=== PATIENT | male | born 1985 | race Caucasian/White ===

== ENCOUNTER 2024-06-27 13:22 | Emergency (ER) | payer OTHER, SELFPAY ==
[2024-06-27 13:25] VITALS: BP 132/77; PULSE 82; RESP 18; TEMP 36.2; O2SAT 100; BMI 29.2
--- NOTE | 2024-06-27 13:59 | RAD_ITS ---
EXAM: XR Left Hand Complete, 3 or More Views CLINICAL INDICATION: PAIN, CRUSH INJURY TECHNIQUE: Frontal, lateral and oblique views of the left hand. COMPARISON: No relevant prior studies available. FINDINGS: BONES/JOINTS: Comminuted mildly displaced fracture of the 3rd middle phalanx. Soft tissue swelling. No dislocation. SOFT TISSUES: See above. RAD/Hand Min 3 Views IMPRESSION: Comminuted mildly displaced fracture of the 3rd middle phalanx. Soft tissue sw elling. Reading Location: [facility]
--- NOTE | 2024-06-27 14:40 | ED.RN ---
PT NOTS SENSATION INTACT IN THE LEFT HAND
[2024-06-27 14:41] VITALS: O2SAT 98
--- NOTE | 2024-06-27 14:52 | EX.ED.GENINJ ---
HPI History of Present Illness Chief Complaint: Trauma Detail of Chief Complaint: Injury to left long and Informant: patient Onset/Context/Timing Onset: Today and Hours (At approximately 12 noon) Location of pain/injuries: Left hand (Index and long finger) Quality of Pain: Dull and Aching Location: Left index and long finger Current Severity: Mild Maximum Severity: Moderate Worsened by: Attempt to use his hand Relieved by: Nothing Associated Symptoms Associated Symptoms: Positive for Loss of function; Negative for Parasthesias or Weakness Narrative Narrative: Patient is a 38-year-old orutp-vqju-ppbijynk male. He presents with injury to his left index and long finger. This occurred at approximately 12 noon. Tetanus is uncertain. He has no antibiotic allergies. He denies paresthesia, anesthesia medics. He states he is unable to bend his left long finger. He denies prior injury. Tetanus Immunization: Unknown Prior similar symptoms: No Recent Illness/Hospitalization: No PFSH PFSH Home Medications ?Medication ?Instructions ?Recorded ?Last Taken ?Type cephalexin 500 mg capsule 500 mg PO 3XD #21 CAPSULES 06/27/24 Unknown Rx Allergy/AdvReac Type Severity Reaction Status Date / Time No Known Allergies Allergy Verified 06/27/24 14:33 Social History (Updated 06/27/24 @ 15:[address] Figueroa Stiles MD) household members: spouse Smoking Status: Never smoker ROS ROS ED Constitutional Constitutional ED: Denies chills or fever(s) Gastrointestinal Gastrointestinal: Denies nausea or vomiting Integumentary Reports other Details: Laceration and abrasions left index and long finger Neurologic Neurologic: Denies paresthesias or weakness Hematologic/Lymphatic Hematologic/Lymphatic: Denies easy bleeding or easy bruising EXAM Physical Exam Const Vital Signs: 06/27/24 13:25 06/27/24 14:41 06/27/24 15:24 Temperature 97.2 F L Temperature Source Temporal Pulse Rate 82 63 Respiratory Rate 18 18 Respiratory Effort Normal Respiratory Depth Normal Respiratory Pattern Normal Blood Pressure 132/77 H 120/78 Blood Pressure Mean 95 92 Pulse Ox 100 98 98 Oxygen Delivery Method Room Air Room Air Initial vital signs reveal elevated blood pressure. Suspect this is due to pain. Positive well nourished and well developed General Appearance ED: well developed; Negative for NAD HEENT atraumatic; Negative for tenderness Nose: Negative for septum abnormal Eyes PERRL and EOMs intact bilaterally Resp normal respiratory effort and clear to auscultation bilaterally Cardio regular rhythm, S1 normal heart sound, S2 normal heart sound and no murmurs Rate: regular rate Extremity Extremity Narrative: Patient has deformity to his left long finger. He has limited flexion extension. There is slight flexion at the PIP and not much at the DIP. His fingers in extension. He has an abrasion noted on the dorsal side of the left index finger over the middle and distal phalanx. He has a laceration lateral side of the index finger that will require repair. He also has a laceration on the ulnar side of his long finger. General Extremety ED: Yes deformity General Extremity: deformity Neuro oriented x3, CN's II-XII intact bilaterally, no focal motor deficits and No no sensory deficits noted Neuro Narrative: Absent two point discrimination radial side of the left long finger Psych mental status grossly normal and thought process normal Skin Skin Narrative: Wounds as previously mentioned under the extremity portion of the EMR MDM MDM Radiography Chest X-Ray - ED: Read by ED Physician (Three-view x-ray of the hand was obtained patient has a comminuted angulated displaced fracture of the middle phalanx shaft long finger. This would explain his limited range of motion.) Diagnostic Testing: Clinical Impression(s) from Imaging Studies Hand X-Ray 06/27/24 13:59 IMPRESSION: Comminuted mildly displaced fracture of the 3rd middle phalanx. Soft tissue swelling. Reading Location: [facility] Management Discussion w/another healthcare provider: Peripheral Edp Equipment Operator (Spoke to Dr. Theodore Garcia. He requested 2 g of Ancef not the 1 that was ordered. He called back and stated he would see patient in the ER. He will make arrangements for outpatient surgical repair.) Discharge Plan Triage Chief Complaint: Trauma ED Provider: Figueroa Stiles Dx/Rx/DC Orders Clinical Impression: Open fracture of middle phalanx of left middle finger, Laceration of left index finger, Crushing injury of finger of left hand Instructions: ED Open Hand Fracture (Adult), ED Laceration, Hand: All Closures Prescriptions: New cephalexin 500 mg capsule 500 mg PO 3XD Qty: 21 0RF Primary Care Provider: Lamar Jo NP Referrals: Theodore Garcia MD [Med Staff - Active Staff] - As soon as possible Sandro,Lamar TUG MASTER, TUG MASTER-C [Primary Care Provider] - Print Language: Upper Sorbian Disposition Disposition: Home, Self Care
[2024-06-27] MEDS: Cefazolin 2 GM in Syringe IV (15:16)
[2024-06-27] MEDS: Lidocaine 1% (20 ml mdv) 20 ML Vial INFILT ×2 (15:16→16:06)
[2024-06-27 15:24] VITALS: BP 120/78; PULSE 63; RESP 18; O2SAT 98
[2024-06-27] MEDS: Diphth,Pertuss(Acell),Tet Vac 0.5 ML Vial IM (16:36)
--- NOTE | 2024-06-27 16:44 | ED.RN ---
DR JOSHI AND HIS NURSE WORKED ON CLEANING THE WOUND ON THE LEFT HAND. DR. PALENCIA NURSE WILL BE CALLING PT TO SCHEDULE FOLLOW UP APPT FOR SURGERY. WOUND WAS BANDAGED WHEN THIS NURSE CAME IN FOR DISPO HOME.
--- NOTE | 2024-06-27 16:50 | CON.PCM.SX_ITS ---
Assessment & Plan Assessment/Plan (1) Crushing injury of finger of left hand: (2) Open fracture of middle phalanx of left middle finger: (3) Laceration of left index finger: PLAN: Plan I talked the patient extensively about management options including close reduction with splinting/casting, close reduction percutaneous pinning with subsequent splinting/casting, and open reduction internal fixation with screw placement through the DIP joint. 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 Given his circumstances, he would like if possible rigid internal fixation with intramedullary screw. He understands that this may not be possible we may have to place K wires. I talked to the patient extensively about the risks of surgery, including bleeding, infection, damage to surrounding structures, poor scaring, hardware failure, non-union or malunion, surgical site dehiscence and wound formation, need for wound care, need for repeat operations (especially if infection of hardware, or infection around the hardware), failure to obtain the desired result, DVT/PE, and the risks of anesthesia including , including stroke (from low blood pressure/ischemia or clot). The benefits and alternatives of this surgery were also discussed. All of their questions were answered, and they agreed to proceed with surgery. The alteration in sensation distal to the zone of injury in the long finger is likely due to the crush injury and neuropraxia. We will reassess his sensation in preoperative holding at the time of the surgery. Plan for open reduction internal fixation versus closed reduction percutaneous pinning of left long finger middle phalanx fracture (likely sedation and local). Patient is open fracture was washed out and closed and his laceration was repaired. Please see separate operative note. 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 Patient reports sharp severe pain in the left upper extremity worsened by movements and improved with rest and elevation. He was noted to have a transverse diaphyseal fracture on x-ray of the left long finger, but no fractures in the index finger. He has a laceration on the long finger and the index finger. Patient is left-handed. No personal or family history of bleeding or clotting problems. He is not a smoker. No history of problems with anesthesia. He was given 2 g of Ancef in the emergency department and his tetanus was updated. [facility] Home Medications ?Medication ?Instructions ?Recorded ?Last Taken ?Type cephalexin 500 mg capsule 500 mg PO 3XD #21 CAPSULES 0 06/27/24 Unknown Rx Allergy/AdvReac Type Severity Reaction Status Date / Time No Known Allergies Allergy Verified 06/27/24 14:33 Social History (Updated 06/27/24 @ 15:[address] Figueroa Stiles MD) household members: spouse Smoking Status: Never smoker Physical Exam Narrative LEFT UPPER EXTREMITY Inspection: 2 cm laceration on the ulnar/dorsal side of the long finger over P2. Index finger with 2 cm laceration on volar/radial surface. Avulsion injury (partial thickness) to the dorsum of the index on the radial side. Palpation: TTP over the long finger P2. Motor: Once blocked with lidocaine and fracture reduced, he was able to bend and extend all MP, PIP, and DIP joints. No flexor or extensor tendon injuries on the index or long fingers. Sensory: Intact to light touch on the radial and ulnar borders except he has no pin prick sensation on the radial side of the long finger distal to the zone of injury (despite no laceration). Vascular: Finger tips are warm and well perfused with <2 second capillary refill. Doppler demonstrated triphasic signal distal to the zone of injury on the index and long fingers. Imaging Radiology Impression Hand X-Ray 06/27/24 13:59 IMPRESSION: Comminuted mildly displaced fracture of the 3rd middle phalanx. Soft tissue swelling. Reading Location: [facility] I reviewed the fracture. Diaphyseal fracture on the long finger middle phalanx. Charges/Coding Visit Charges Office Visits / Consults: 38021 OV L4 New 45min
--- NOTE | 2024-06-27 17:04 | OP.PCM_ITS ---
Operative Report (Standard) Operative Information Date of Procedure: 06/27/24 Pre-Operative Diagnosis: 1) Left long finger open fracture, middle phalanx 2) Laceration left index finger Post-Operative Diagnosis: Same Surgery/Procedure Performed: 1) Left long finger open fracture wash out and closure, CPT: 89061 2) Left index finger laceration repair, 2 cm (simple), CPT: 31830 registered physical therapist: No Type of Anesthesia: Local (10 cc of 1% lidocaine ) Procedure Start Time: 04:25 Procedure Stop Time: 04:50 Select all DRAINS/GRAFTS/IMPLANTS that apply: None Estimated Blood Loss: minimal Specimen collected: No Description of surgery: Indications: 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 He has an open fracture of the left long finger middle phalanx. Presents today for washout. I talked him about the risks, benefits, and alternatives to washout and closure of these wounds. Procedure details: Patient was correctly identified and prepped and draped in sterile fashion with chlorhexidine scrub. Timeout was performed. The above-noted local mixture was administered for digital block as noted above (10 cc of 1% lidocaine). He was given time to take effect. Both of the wounds (index finger volar laceration and long finger dorsal ulnar laceration) were both washed out with copious amounts normal saline. The long f tree fracture was reduced and his tendons were examined (he was able to hyperextend from neutral and flex the DIP joint and the PIP joint independently). 1 L normal saline was used to washout the long finger open fracture, and necrotic skin debris was washed out of the wound and dirt was washed out the subcutaneous tissue overlying the wound. The wounds were then closed with simple interrupted 3-0 nylon sutures, 4 simple closure 2 cm in the index finger and a simple closure 2 cm in the long finger. The patient tolerated the procedure well. Xeroform Karen and Coban were applied loosely and a protective AlumaFoam splint was applied to the long finger. Postoperative plan: Patient will go home on Keflex 500 mg 3 times daily for 1 week. He will follow-up with me for surgery. Surgical Findings: Reducible and unstable P2 fracture of the left long finger Complications Complications: No
== END 2024-06-27 16:47 | disposition home or self-care (01) ==
PROVIDERS: Emergency Provider Emergency Medicine; PCP Internal Medicine; Referring Provider Emergency Medicine; Visit Provider Emergency Medicine
DX: S62.623B Displaced fracture of middle phalanx of left middle finger, initial encounter for open fracture (principal); S67.193A Crushing injury of left middle finger, initial encounter; S61.211A Laceration without foreign body of left index finger without damage to nail, initial encounter; W22.8XXA Striking against or struck by other objects, initial encounter; Z23 Encounter for immunization
CPT/HCPCS: 26725; 12002; 73130; 90715; 96365; 99283; A4216

== ENCOUNTER 2024-06-29 10:13 | Day surgery (SDC) | payer OTHER, SELFPAY ==
[2024-06-29] VITALS (7 sets, daily range): BP systolic 117–136; BP diastolic 73–94; PULSE 68–80; RESP 16–20; TEMP 35.8–36.2; O2SAT 97–100; BMI 28.5
--- NOTE | 2024-06-29 10:32 | PRE.ANES_ITS ---
ASA Classification* ASA Classification ASA Classification: 2 Assessment & Plan Anesthesia* Anesthesia Assessment Anesthesia Assessment: Discussed sedation and/or anesthesia options, risks, benefits, and alternatives with patient/parents/legal guardian/POA. Questions invited. The patient/parents/legal guardian/POA seems to understand and agrees to proceed with anesthesia plan. Reviewed the physical assessment, medical history, allergy history and patient home medications list prior to surgery/procedure/anesthetic and documented any changes. Performed airway and anesthesia risk assessments. Anesthesia Type Anesthesia Type: MAC Anesthesia Focused Assessment* Airway Assessment Mouth opens: >3 cm Mallampati Score: II Focused Labs Anesthesia Preop lab: CBC CHEMISTRY COAG Pre-Assessment Diagnosis/Proposed Procedure Planned Operative Procedure(s): ORIF LEFT LONG FINGER VS CLOSED REDUCTION PINNING Anesthesia History Anesthesia History - [facility]: Anesthesia History - [facility] Hx Hospitalization No 06/28/24 12:24 Any Problems With Anesthesia No 06/28/24 12:24 Cholinesterase deficiency No 06/28/24 12:24 You/Your Family Experience No 06/28/24 12:24 fever (hyperthermia) with Relationship Recent Exposure to Contagious Disease Does patient have nerve No 06/28/24 12:24 stimulator Patient instructed to have device shut off --Does patient have Pacemaker or ICD? When Was Last Pacemaker Check QUESTION #4 FULL TEXT: You/Your Family Experience fever (hyperthermia) with Anesthesia Last Oral Intake Last Oral intake: Last Oral Intake NPO since Meds taken in AM with sips of water? Meds patient instructed to take am of surgery PONV PONV - [facility] service [facility]: PONV - [facility] Female No 06/28/24 12:24 HX of Motion Sickness No 06/28/24 12:24 HX of N/V After Surgery No 06/28/24 12:24 Non-Smoker Yes 06/28/24 12:24 Duration of Surgery greater Yes 06/28/24 12:24 than 60 minutes Number of Risk Factors 2 06/28/24 12:24 PONV Score Moderate Risk 06/28/24 12:24 Height & Weight Height & Weight: Anesthesia: Height & Weight Height 6 ft 2 in 06/27/24 13:25 Respiratory Assessment Respiratory Assessment - [facility]: Respiratory Tract Infection Hx - [facility] Hx Respiratory Tract Infection No 06/28/24 12:24 STOP Sleep Apnea STOP Sleep Apnea - [facility]: STOP Sleep Apnea - [facility] Hx Hypertension No 06/28/24 12:24 Hx Sleep Apnea No 06/28/24 12:24 CPAP BIPAP Do you snore loudly (louder No 06/28/24 12:24 than talking or can be heard Do you often feel tired/ Yes 06/28/24 12:24 fatigued/ sleepy during daytime? Has anyone observed you stop No 06/28/24 12:24 breathing during sleep? STOP Results Negative 06/28/24 12:24 QUESTION #5 FULL TEXT : Do you snore loudly (louder than talking or can be h eard through closed doors)? Tobacco Use History Tobacco Use History - [facility]: Tobacco Use History - [facility] Tobacco Use Smoking Status Never smoker 06/28/24 12:24 Hx Tobacco Use No 06/28/24 12:24 Years Smoking Packs Smoked per Day Smoking Cessation Date was within the last 15 years Hx Smoking Cessation Date Hx Smoking Cessation Counseling Hematologic Medial History Hematologic Hx - [facility] service [facility]: Hematologic Medical Hx - [facility] Hx of Blood Transfusion No 06/28/24 12:24 Hx of Transfusion in last 3 No 06/28/24 12:24 Months Date of Last Transfusion (if within last 3 months) Ever experience any problems No 06/28/24 12:24 with transfusion(s)? Specify any problems Hx of Preganancy in last 3 N/A 06/28/24 12:24 Months Nurse Filling Out Transfusion DSCHRIBER 06/28/24 12:24 & Questions: Date: 06/28/24 06/28/24 12:24 Time: 12:06/28/24 12:24 Patient unable to answer at this time (ie. confused, unrespo /Reproduction History /Reproductive History - [facility]: /Reproductive Hx- [facility] Hx Now No 06/28/24 12:24 Gestational Age (in weeks): EDC: Hx Hx Para Hx Section SAB No 06/28/24 12:24 Active Medications Active Medications: Current Medications Generic Name Dose Route Start Last Admin Trade Name Freq PRN Reason Stop Dose Admin Cefazolin Sodium 2 gm/ N/A 20 mls @ 400 mls/hr 06/29/24 15:00 IV 06/29/24 15:02 PREOP ONE PFSH Medical History Leg cramps Non-smoker Home Medications ?Medication ?Instructions ?Recorded ?Last Taken ?Type cephalexin 500 mg capsule 500 mg PO 3XD #21 CAPSULES 0 06/27/24 Unknown Rx Allergy/AdvReac Type Severity Reaction Status Date / Time No Known Allergies Allergy Verified 06/28/24 12:23 Surgical History (Updated 06/28/24 @ 12:27 by Cassi Jaime) Hx of wisdom tooth extraction Social History (Updated 06/27/24 @ 15:[address] Figueroa Stiles MD) household members: spouse Smoking Status: Never smoker Review of Systems (Anesthesia) ROS Narrative System reviewed and no additional complaints, except as documented.
[2024-06-29] MEDS: 0.9% Normal Saline (1000mL) 1,000 ML 15 ML IV (10:45)
--- NOTE | 2024-06-29 11:00 | RAD_ITS ---
EXAM: Intraoperative fluoroscopy, 4 fracture fixation at the left 3rd finger middle phalanx. CLINICAL HISTORY: Fracture fixation. COMPARISON: None. TECHNIQUE: Intraoperative fluoroscopy, 4 fracture fixation at the left 3rd finger middle phalanx. 5 fluoroscopic images were also obtained. RAD/Finger(s) Min 2 Views IMPRESSION: Intraoperative fluoroscopy, 4 fracture fixation at the left 3rd finger middle p halanx. 5 fluoroscopic images were also obtained. Reading Location: [id number]
--- NOTE | 2024-06-29 11:00 | RAD_ITS ---
EXAM: Intraoperative fluoroscopy, 4 fracture fixation at the left 3rd finger middle phalanx. CLINICAL HISTORY: Fracture fixation. COMPARISON: None. TECHNIQUE: Intraoperative fluoroscopy, 4 fracture fixation at the left 3rd finger middle phalanx. 5 fluoroscopic images were also obtained. RAD/O.R. Fluoro for C-Arm IMPRESSION: Intraoperative fluoroscopy, 4 fracture fixation at the left 3rd finger middle p halanx. 5 fluoroscopic images were also obtained. Reading Location: [id number]
--- NOTE | 2024-06-29 11:03 | HP.PCM.SX_ITS ---
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 Patient reports sharp severe pain in the left upper extremity worsened by movements and improved with rest and elevation. He was noted to have a transverse diaphyseal fracture on x-ray of the left long finger, but no fractures in the index finger. He has a laceration on the long finger and the index finger. Patient is left-handed. No personal or family history of bleeding or clotting problems. He is not a smoker. No history of problems with anesthesia. He was given 2 g of Ancef in the emergency department and his tetanus was updated. Current Encounter (DATE OF SURGERY H&P UPDATE): I saw and examined the patient this morning in pre-operative holding. We discussed risks and benefits of today's surgery and they would like to proceed. NO CHANGE in health history since last seen and evaluated. Ready to proceed with surgery. [facility] Medical History Leg cramps Non-smoker Home Medications ?Medication ?Instructions ?Recorded ?Last Taken ?Type cephalexin 500 mg capsule 500 mg PO 3XD #21 CAPSULES 0 06/27/24 06/29/24 Rx oxycodone 5 mg tablet 5 mg PO BID PRN pain 5 days #10 06/29/24 Unknown Rx tabs Allergy/AdvReac Type Severity Reaction Status Date / Time No Known Allergies Allergy Verified 06/29/24 10:35 Surgical History Hx of wisdom tooth extraction Social History household members: spouse Smoking Status: Never smoker Vital Signs Vital Signs Vital Signs: 06/29/24 10:37 06/29/24 10:37 Temperature 96.5 F L Temperature Source Temporal Pulse Rate 80 Respiratory Rate 16 Respiratory Pattern Normal Blood Pressure 129/73 H Blood Pressure Mean 91 Blood Pressure Source Monitor Blood Pressure Position Semi-Fowlers Blood Pressure Location Left Arm Pulse Ox 100 Oxygen Delivery Method Room Air Weight Weight: 222 lb 10.67 oz Body Mass Index (BMI) 28.5 Physical Exam Narrative LEFT UPPER EXTREMITY Inspection: Lacerations c/d/i with intact repairs. No signs of infection. Palpation: TTP over the long finger P2. Motor: He was able to bend and extend all MP, PIP, and DIP joints. No flexor or extensor tendon injuries on the index or long fingers. Sensory: Intact to light touch on the radial and ulnar borders of all fingers. He has 2 mm 2-point discrimination distal to the zone of injury on the index and long fingers (no nerve injuries) . Vascular: Finger tips are warm and well perfused with <2 second capillary refill. Assessment & Plan Assessment/Plan (1) Crushing injury of finger of left hand: (2) Open fracture of middle phalanx of left middle finger: (3) Laceration of left index finger: PLAN: Plan INTERVAL H&P PLAN, DATE OF SURGERY: We will proceed with surgery today. I talked the patient extensively about management options including close reduction with splinting/casting, close reduction percutaneous pinning with subsequent splinting/casting, and open reduction internal fixation with screw placement through the DIP joint. 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 Given his circumstances, he would like if possible rigid internal fixation with intramedullary screw. He understands that this may not be possible we may have to place K wires. I talked to the patient extensively about the risks of surgery, including bleeding, infection, damage to surrounding structures, poor scaring, hardware failure and hardware infection, non-union or malunion, surgical site dehiscence and wound formation, need for wound care, need for repeat operations (especially if infection of hardware, or infection around the hardware), failure to obtain the desired result, MRI incomparability of screw (possible if stainless steel paced - agreed, regardless of screw type, to proceed), DVT/PE, and the risks of anesthesia including , including stroke (from low blood pressure/ischemia or clot). The benefits and alternatives of this surgery were also discussed. All of their questions were answered, and they agreed to proceed with surgery. The alteration in sensation in the ED was a crush neurapraxia as he has a normal sensory exam today. Plan for open reduction internal fixation versus closed reduction percutaneous pinning of left long finger middle phalanx fracture (sedation and local).
[2024-06-29] MEDS: Cefazolin 2 GM in Syringe IV (11:15)
[2024-06-29] MEDS: Bupivacaine 0.25% 30 ML Vial (12:04)
[2024-06-29] MEDS: Lidocaine 1% (20 ml mdv) 20 ML Vial (12:05)
--- NOTE | 2024-06-29 12:12 | PCM.POST.ANE ---
Anesthesia: Postop Eval I Current Vital Signs Temperature: 97 F Pulse Rate: 75 Blood Pressure: 123/81 Respiratory Rate: 20 Pulse Ox: 97 Oxygen Delivery Method: Room Air Assessment Airway patent: Yes Spontaneous unlabored respirations: Yes Mental status: Awake and Calm nausea: No Vomiting: No Anesthesia Complication: No Fluid Hydration Crystalloid volume administer (ml): 700 Total IV fluid infused: 700 Progress Note Anesthesia document: Postop Eval 1 completed: Yes
--- NOTE | 2024-06-29 13:00 | POSTOPAN2_ITS ---
Anesthesia Postop Eval I Sum Postop Eval Completion status Anesthesia document: Postop Eval 1 completed: Yes Anesthesia Postop Eval I Summary Anesthesia Postop Eval I Summary: Anesthesia Postop Eval I: Assessment Summary Airway patent Yes 06/29/24 12:13 FACING [email or web address] [email or web address] Spontaneous unlabored Yes 06/29/24 12:13 FACING BASTER [email or web address] respirations Mental status Awake,Calm 06/29/24 12:13 FACING BASTER [email or web address] nausea No 06/29/24 12:13 FACING BASTER [email or web address] Vomiting No 06/29/24 12:13 FACING BASTER [email or web address] Anesthesia Postop Eval I: Fluid Summary Crystalloid volume administer 700 06/29/24 12:13 FACING BASTER [email or web address] (ml) Colloids volume administered ( ml) Blood Product volume administered (ml) Total IV fluid infused 700 06/29/24 12:13 FACING BASTER [email or web address] Anesthesia Postop Eval I: Summary Notes Anesthesia Complication No 06/29/24 12:13 FACING [email or web address] [email or web address] Anesthesia Complication Comment: Post-operative progress note Anesthesia: Postop Eval II Evaluation Mental status: Awake Pain Level: 0 nausea: No Vomiting: No
--- NOTE | 2024-06-29 13:00 | PCM.POSTANE2 ---
Anesthesia Postop Eval I Sum Postop Eval Completion status Anesthesia document: Postop Eval 1 completed: Yes Anesthesia Postop Eval I Summary Anesthesia Postop Eval I Summary: Anesthesia Postop Eval I: Assessment Summary Airway patent Yes 06/29/24 12:13 [email or web address] [email or web address] Spontaneous unlabored Yes 06/29/24 12:13 [email or web address] [email or web address] respirations Mental status Awake,Calm 06/29/24 12:13 [email or web address] nausea No 06/29/24 12:13 [email or web address] [email or web address] Vomiting No 06/29/24 12:13 [email or web address] Anesthesia Postop Eval I: Fluid Summary Crystalloid volume administer 700 06/29/24 12:13 [email or web address] (ml) Colloids volume administered ( ml) Blood Product volume administered (ml) Total IV fluid infused 700 06/29/24 12:13 [email or web address] Anesthesia Postop Eval I: Summary Notes Anesthesia Complication No 06/29/24 12:13 [email or web address] Anesthesia Complication Comment: Post-operative progress note Anesthesia: Postop Eval II Evaluation Mental status: Awake Pain Level: 0 nausea: No Vomiting: No
--- NOTE | 2024-06-29 14:34 | PCM.OPRPT ---
Operative Report (Standard) Operative Information Date of Procedure: 06/29/24 Pre-Operative Diagnosis: 1) Left long finger middle phalanx fracture Post-Operative Diagnosis: Same Surgery/Procedure Performed: 1) open reduction internal fixation left long finger middle phalanx fracture (CPT: 52734) equal opportunity assistant: Yes Division Officer [employer]: Emma Ledezma Tasks completed by assistant director: Retracting Type of Anesthesia: MAC/Supplemental (8 cc of a 50/50 mixture of 1% lidocaine and 0.25% Marcaine ) RN Documented Start/Stop Times: Operation Date: 06/29/24 12:00 Case Time Into Pre-Op 06/29/24 10:16 Out of Pre-Op 06/29/24 11:11 Anesthesia Start 06/29/24 11:13 Into Room 06/29/24 11:13 Procedure Start 06/29/24 11:36 Procedure End 06/29/24 12:05 Anesthesia End 06/29/24 12:08 Out of Room 06/29/24 12:08 Into Recovery 06/29/24 12:10 Out of Recovery 06/29/24 12:31 Into Phase II Recovery 06/29/24 12:32 Out of Phase II 06/29/24 13:28 Procedure Start Time: 11:36 Procedure Stop Time: 12:05 Select all DRAINS/GRAFTS/IMPLANTS that apply: Implanted device (Intramedullary screw ) Implanted device details: 22 mm Acutrak Titanium screw, 2.0 Reena Acutrak 3 bone screw [id number] Estimated Blood Loss: minimal Specimen collected: No Description of surgery: Indications JM is a 38-year-old male with a left long finger transverse middle phalanx fracture. Presents today for open reduction internal fixation with an intramedullary screw. He understands the risks, benefits, and alternatives to the procedure, and he would like to proceed. Procedure details: Patient was correctly identified preoperative holding, marked, and taken back to the operating room where they were administered sedation and local anesthesia. They were prepped and draped in sterile fashion and all proper timeouts were performed per protocol. I began the procedure by taking an x-ray of the fracture using the mini C arm. I was able to reduce the fracture with gentle manipulation. I then took a guidewire for a 2 mm diameter intramedullary screw and drilled from the DIP joint distally and through the middle phalanx across the fracture line stabilizing the fracture. Mini C arm x-rays confirmed proper placement and reduction (on PA and lateral). I then checked the digital cascade and there was no angulation or rotation of the finger or any scissoring. Therefore we proceeded and a cut down with 15 blade scalpel was made down to the base of the K wire on the dorsum of the DIP joint over the terminal slip (this was the open part of the procedure, and care was taken to cut down to the bone longitudinally splitting the terminal slip and a favorable alignment to protect it from rupture). The bone was then reamed. The 2 mm x 22 mm screw was then placed through the guidewire into the proximal phalanx across the fracture line bridging the gap and filling the medullary cavity well. I was happy with the x-ray on PA and lateral. I stressed the fracture line with radial and ulnar stress and the construct appeared to be rigid and stable. The cascade was checked one more time and was acceptable. With the guidewire removed, I then irrigated the small wound on the dorsum of the finger and closed with an interrupted 4-0 nylon suture. The patient tolerated the procedure well and was placed in a radial gutter splint with plaster. Postoperative plan: Follow-up with me on Friday, July 05, 2024, at which time we will remove the splint and refer the patient to the hand therapist for an Orthoplast splint and to begin early active range of motion. Surgical Findings: Reducible fracture Complications Complications: No Admit VTE Documentation VTE Mechan Device Prophylaxis: SCD's
== END 2024-06-29 13:29 | disposition home or self-care (01) ==
LOC: SDC 10:22 → AC 10:23
PROVIDERS: PCP Internal Medicine; Referring Provider Surgery Plastic and Reconstructive Surgery; Visit Provider Surgery Plastic and Reconstructive Surgery
PROC: (CPT 26735; principal; 2024-06-29 11:45)
DX: S67.193A Crushing injury of left middle finger, initial encounter (principal); S62.623B Displaced fracture of middle phalanx of left middle finger, initial encounter for open fracture; W22.8XXA Striking against or struck by other objects, initial encounter
CPT/HCPCS: 26735; 01830; 73140; 76000; C1713; J2405

== ENCOUNTER 2024-08-01 18:30 | Outpatient (RCR) | payer OTHER, SELFPAY ==
--- NOTE | 2024-07-11 18:56 | HP.OTEVAL_ITS ---
Patient's Visit Information Visit Information Visit Information: JULIA ORTIZ is a 38 year old M, referred to Occupational Therapy by Dr. Theodore Garcia MD, with a diagnosis of left MF middle phalanx. Date of Evaluation: 07/05/24 Occupational Therapist: Fany Spangler, OTR/Lora, CHT Subjective Subjective: This 38 year old male was seen for OT eval with dx of left MF middle phalanx open fx, Displaced fx of middle phalanx of left MF. pt is left handed. DOI 06/27/24 DOS 06/29/24 pt arrives for custom orthosis for protection and support while fx and soft tissue heal. As this is pts dominate hand pt is limited with use of left hand with ADLs due to limited ROM, pain and healing structures. pt would like to know when he can return to work and using his hand, Pain left hand: Current Pain Intensity: 2 Pain Intensity Range: 4 ROM MP: left IF 65 right 70 MF 70 right 85 PIP: left IF 0/45* right 105 left MF -10/ 50* right 100 DIP: left IF 10 MF 20* Strength Strength Comments: will test later date Sensation Sensation Comments: denies issues at this time Quick DASH-Disab of Arm,Shoulder& Hand Quick DASH Score: [phone] Goals Goal:Daily scar massage when approriate: Yes Goal:ROM equal to unaffected hand: Yes Goal:Upward Bound Director/Pinch strength at least 75% of unaffected hand: Yes Comment: will initiate at week 6 unless otherwised advised by Goal:No pain with affected hand use: Yes Goal:Full use of affected hand in daily activities including work: Yes Other Goal: orthosis use: pt will demo understanding of using orthosis for protection and support by end of 1st session. Rehabilitation General Assessment: pt arrives 6 days s/p from left MF middle phalanx ORIF. pt is limited with functional use of his dominate left hand with ADLs and IADLs. Pt would benefit from skilled OT services 1-2x week for 6 weeks to return pt to his PLOF. Today therapist ed. pt on dx, need of custom orthosis for support and protection, AROM, edema. Pt and pts family demo understanding. Rehabilitation Potential: Good Anticipated Interventions Anticipated Interventions: A/AAROM/PROM, Strengthening, Edema Control, Scar Care, Desensitization, Orthoses, Joint Protection/Energy Conservation, Ergonomic Education, Fine Motor Coord/David, Education re assistive Equipment, Education re Diagnosis, Caregiver Training and Home Program Visit Plan Frequency: 1-2x /Week Duration: 2 Months TEXT: Thank you for the opportunity to evaluate your patient. For Medicare and Medicare HMO plans, please review the plan of care and approve it. It will need to be FAXED BACK to us at [phone] for Medicare purposes. Please let me know if there are questions or concerns regarding this plan of care. Physician Signature: Date:
--- NOTE | 2024-12-08 09:34 | HP.OT.NRP ---
Patient Information Patient Information: JULIA ORTIZ was seen in my office for initial evaluation on 07/05/24. The following Plan of Care was established for this patient: POC Established Initial Frequency: 1-2x /Week Initial Duration: 2 Months Plan: edema incision care ( was a little wet today- ed. to decrease coverage with band aide and ointment Anticipated Interventions Anticipated Interventions: A/AAROM/PROM, Strengthening, Edema Control, Scar Care, Desensitization, Orthoses, Joint Protection/Energy Conservation, Ergonomic Education, Fine Motor Coord/David, Education re assistive Equipment, Education re Diagnosis, Caregiver Training and Home Program Last Seen Last Seen: This patient was last seen in our office 08/01/24. Pertinent comments regarding their Occupational therapy will appear below: No further apts have been scheduled and due to time lapse in services pt is d/c. At this point I will be discontinuing this patient from occupational therapy. I would be happy to see this patient again in the future if found appropriate by the physician. Thank you! Fany Spangler, OTR/L, CHT
== END 2024-08-01 19:00 | disposition home or self-care (01) ==
LOC: OT 18:30
PROVIDERS: PCP Internal Medicine; Referring Provider Surgery Plastic and Reconstructive Surgery; Visit Provider Surgery Plastic and Reconstructive Surgery
DX: S62.623D Displaced fracture of middle phalanx of left middle finger, subsequent encounter for fracture with routine healing (principal)
CPT/HCPCS: 97110; 97166; 97530